=== PATIENT | male | born 1970 | race Caucasian/White ===

== ENCOUNTER 2025-04-12 12:02 | Outpatient (CLI) | payer BC | END 2025-04-12 23:59 | disposition home or self-care (01) | LOC: RAD 12:02 | PROVIDERS: ATTEND Internal Medicine Interventional Cardiology | DX: Z01.811 Encounter for preprocedural respiratory examination (principal); R06.02 Shortness of breath | CPT/HCPCS: 71046 ==

== ENCOUNTER 2025-04-19 06:15 | Day surgery (SDC) | payer BC ==
[2025-04-19] MEDS ORDERED: BUPIVACAINE 0.5 % PF 150 MG/30 ML VIAL ONE (06:18)
[2025-04-19] MEDS ORDERED: LIDOCAINE 1%-EPI 1:100,000 20 ML VIAL ONE (06:18)
[2025-04-19] MEDS ORDERED: MIDAZOLAM HCL 2 MG/2ML VIAL ONE (06:40)
[2025-04-19] MEDS ORDERED: FENTANYL PF 100MCG/2ML AMPUL ONE ×3 (06:40→10:39)
[2025-04-19] MEDS ORDERED: LABETALOL 20 MG/4 ML VIAL ONE (06:41)
[2025-04-19] MEDS ORDERED: BUPIVACAINE 0.25% 75 MG/30 ML VIAL ONE (07:54)
[2025-04-19] MEDS ORDERED: ANESTHESIA TRAY IN PYXIS 1 EA TRAY MC ONE (14:42)
== END 2025-04-19 13:05 | disposition home or self-care (01) ==
LOC: DS 06:15
PROVIDERS: ATTEND Surgery
DX: K40.90 Unilateral inguinal hernia, without obstruction or gangrene, not specified as recurrent (principal); Z79.899 Other long term (current) drug therapy; Z98.890 Other specified postprocedural states
CPT/HCPCS: 49650; J1885; J0690; J3490 ×6; J1100; J2704; J3010 ×3; J0330; J2405; J7030; J2250; C1781; C1713